=== PATIENT | male | born 1990 | race Caucasian/White ===

== ENCOUNTER → 2022-06-15 | Outpatient (CLI) | payer OTHER ==
[2022-06-15 16:45] LABS: HEMOGLOBIN 17.4 gm/dl (14.0-17.5); RED BLOOD COUNT 6.06 M/UL (4.20-5.50); WHITE BLOOD COUNT 12.1 K/UL (4.5-11.0)
[2022-06-15 17:28] LABS: BUN/CREATININE RATIO 22 (0-10)
[2022-06-17 07:10] LABS: HIV AB/P24 AG SCREEN Non Reactive (Non Reactive)
[2022-06-17 08:13] LABS: HBSAG SCREEN Negative (Negative); HCV AB 0.2 (0.0-0.9); HEP A AB, IGM Negative (Negative); HEP B CORE AB, IGM Negative (Negative); HEPATITIS B SURF AB QUANT <3.1 mIU/mL (Immunity>9.9); THYROXINE (T4) 7.1 ug/dL (4.5-12.0); VITAMIN D, 25-HYDROXY 34.3 ng/mL (30.0-100.0)
[2022-06-17 19:08] LABS: QUANTIFERON MITOGEN VALUE >10.00 IU/mL (.); QUANTIFERON NIL VALUE 0.01 IU/mL (.); QUANTIFERON TB1 AG VALUE 0.11 IU/mL (.); QUANTIFERON TB2 AG VALUE 0.04 IU/mL (.); QUANTIFERON-TB GOLD PLUS Negative (Negative)
[2022-06-19 23:07] LABS: T PALLIDUM ANTIBODIES Non Reactive (Non Reactive)
== END ==
LOC: LAB 15:08
PROVIDERS: Physician Assistant
DX: F11.23 Opioid dependence with withdrawal (principal); F13.280 Sedative, hypnotic or anxiolytic dependence with sedative, hypnotic or anxiolytic-induced anxiety disorder; F15.13 Other stimulant abuse with withdrawal; F31.9 Bipolar disorder, unspecified
CPT/HCPCS: 36415; 80053; 80061; 80074; 82248; 82607; 82728; 83036; 83540; 83735; 84436; 84443; 84481; 85025; 86317; 86592; 86704; 86780; 87389